=== PATIENT | male | born 1950 | race Caucasian/White ===

== ENCOUNTER 2021-11-07 14:49 | Outpatient (CLI) | payer MEDICARE, SELFPAY ==
--- NOTE | ~2021-11-07 | XR_ITS ---
XR foot RT min 3V DATE: 11/07/2021 15:21 INDICATION: Fifth digit pain and dorsal metatarsal swelling TECHNIQUE: 4 views COMPARISON: None FINDINGS: Prominent plantar and slight posterior calcaneal enthesopathy. There is mild osteoarthritis at the first metatarsophalangeal joint. No recent fracture, dislocation, periosteal reaction or bone destruction is evident. IMPRESSION: Calcaneal enthesopathy Mild osteoarthritis at first metatarsophalangeal joint Reviewed, dictated and finalized at location J. N WASHER
== END 2021-11-07 14:50 | disposition home or self-care (01) ==
PROVIDERS: PCP Emergency Medicine; Visit Provider Emergency Medicine
DX: M19.071 Primary osteoarthritis, right ankle and foot (principal); M77.31 Calcaneal spur, right foot
CPT/HCPCS: 73630

== ENCOUNTER 2021-11-11 10:45 | Emergency (ER) | payer MEDICARE, SELFPAY ==
[2021-11-11 11:47] VITALS: BP 125/75; PULSE 91; RESP 20; TEMP 36.5; O2SAT 100
[2021-11-11 12:00] VITALS: BP 125/75; PULSE 91; RESP 20; O2SAT 100
--- NOTE | 2021-11-11 12:00 | ED.LOWEXIN ---
HPI - Extremity Injury (Lower) General Chief Complaint: Extremity Injury, Lower Stated Complaint: right foot pain Time Seen by Provider: 11/11/21 11:54 Source: patient Mode of arrival: ambulatory Limitations: no limitations History of Present Illness HPI Narrative: Patient is 70 years old white male presents with right foot pain started 1 week ago. Patient denies any specific trauma. Patient reports that pain gets worse if he tries to put weight on it. Patient denies any pain anywhere else except of the foot. Patient denies any fever, chills, nausea, vomiting. Patient had x-ray of the right foot ON November 07, 2021 which showed no acute abnormalities. History of hypertension, patient does not smoke or drink or uses drugs. Related Data Home Medications Medication Instructions Recorded Confirmed atorvastatin 10 mg PO 11/11/21 cephalexin 500 mg BID 11/11/21 11/11/21 cyanocobalamin (vitamin B-12) mcg 11/11/21 ergocalciferol (vitamin D2) 11/11/21 sitagliptin [Januvia] mg 11/11/21 tizanidine mg 11/11/21 valsartan-hydrochlorothiazide tablet 11/11/21 Allergies Allergy/AdvReac Type Severity Reaction Status Date / Time No Known Allergies Allergy Verified 11/11/21 12:01 Review of Systems Review of Systems: CONSTITUTIONAL: Denies fever, chills, or sweats. EYES: Denies visual changes, redness, or discharge. ENT: Denies rhinorrhea, congestion, sore throat, or otalgia. CARDIOVASCULAR: Denies chest pain, palpitations, or edema. RESPIRATORY: Denies cough or dyspnea. GASTROINTESTINAL: Denies abdominal pain, nausea, vomiting, or diarrhea. GENITOURINARY: Denies dysuria or hematuria. SKIN: Denies rash or itching. MUSCULOSKELETAL: Denies back pain, joint pain, or myalgia. NEUROLOGIC: Denies headache, numbness, or weakness. PSYCHIATRIC: Denies anxiety or depression. Exam Narrative: General appearance: Well-developed, well-nourished Skin: Normal color Head: Normocephalic, nontraumatic Eyes: Clear conjunctiva ENT: Oropharynx normal, ears normal, nose normal Neck: Supple, nontender Chest and respiratory: Airway patent, no respiratory distress, no accessory muscle use Heart: Regular rate/rhythm Abdomen: Soft, nontender, no organomegaly, quiet bowel sounds Vascular: Normal peripheral pulses, normal capillary refill. Musculoskeletal: Right foot showed slight diffuse swelling, slight faint erythematous changes at the dorsal side with mild tenderness with deep palpation. Slightly warm to touch. No discharge or open skin. No localized joint swelling or tenderness. 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 Tenosynovitis, gouty arthritis, cellulitis my concern. Patient will be discharged on prednisone. Because his creatinine is 1.8, will trying to avoid any NSAID at this time.. Patient was advised to keep foot elevated, follow-up with Ortho if there is no improvement in 5 days. Differential Diagnosis Differential diagnosis: Likely ankle sprain and strain and other (Tenosynovitis, tendinitis, arthritis, cellulitis) Critical Care Time C
[2021-11-11 13:00] LABS: Basophils Percent Auto 0.3 % (0.2-1.2); Eosinophils Absolute Auto 0.3 K/mm3 (0-0.3); Hematocrit 35.3 % (42.0-52.0); Hemoglobin 11.6 g/dL (14.0-18.0); Immature Granulocyte Absolute 0.07 K/mm3 (0.00-0.031); Immature Granulocyte Percent A 0.5 % (0-0.5); Lymphocytes Absolute Auto 1.01 K/mm3 (0.9-3.2); Lymphocytes Percent Auto 7.8 % (18.3-44.2); Mean Corpuscular HGB Conc 32.9 g/dl (32-36); Mean Corpuscular Hemoglobin 29.6 pg (26-34); Mean Corpuscular Volume 90.1 fl (80-100); Mean Platelet Volume 10.2 fl (7.4-10.4); Monocytes Absolute Auto 1.4 K/mm3 (0.1-0.6); Monocytes Percent Auto 10.9 % (2.6-8.5); Neutrophils Absolute Auto 10.1 K/mm3 (1.3-6.7); Neutrophils Percent Auto 78.5 % (45.5-73.1); Platelet Count Result 287 k/mm3 (150-375); Red Blood Count 3.92 M/mm3 (4.6-6.20); Red Cell Distribution Width 12.3 % (11.5-14.5); White Blood Count 12.9 K/mm3 (4.5-10.0)
[2021-11-11 13:15] LABS: Alanine Aminotransferase 14 U/L (4-50); Albumin Level 4.4 g/dL (3.5-5.1); Alkaline Phosphatase 67 U/L (38-126); Anion Gap 13 mmol/L (8-16); Aspartate Amino Transferase 20 U/L (17-59); Bilirubin,Total 0.4 mg/dL (0.2-1.3); Blood Urea Nitrogen 33 mg/dL (9-20); CRP 2.4 mg/dL (<1.0); Calcium 9.8 mg/dL (8.4-10.2); Carbon Dioxide 24 mmol/L (22-30); Chloride 102 mmol/L (98-107); Estimated CRCL calculation 40 ml/min; Estimated Glomerular Filt Rate 38; Glucose 97 mg/dL (65-110); Potassium 4.3 mmol/L (3.4-5.0); Sodium 139 mmol/L (137-145)
[2021-11-11 13:34] LABS: Erythrocyte Sedimentation Rate 78 mm/hr (0-20)
== END 2021-11-11 13:46 | disposition home or self-care (01) ==
PROVIDERS: Emergency Provider Emergency Medicine
DX: M79.671 Pain in right foot (principal); E86.0 Dehydration; N19 Unspecified kidney failure
CPT/HCPCS: 36415; 80053; 85025; 85652; 86140; 99283

== ENCOUNTER 2022-02-12 10:07 | Emergency (ER) | payer OTHER, MEDICARE, SELFPAY ==
--- NOTE | ~2022-02-12 | CT_ITS ---
EXAMINATION: CT abdomen pelvis w con EXAM DATE: 02/12/2022 11:50 INDICATION: Abdominal pain. TECHNIQUE: Spiral CT of the abdomen and pelvis was performed following intravenous injection of 100 m L Omnipaque 350. Axial, coronal and sagittal images of the abdomen and pelvis were reviewed. The do se-length product (DLP) for this examination was 1341.89 mGy-cm. The exposure was tailored according to patient size (auto mA exposure control), and iterative reconstruction (ASIR) was used as addition al dose reduction technique. There is no prior study for comparison. FINDINGS: The liver, spleen, adrenal glands and pancreas are unremarkable. Gallbladder is unremarkab le. No biliary obstruction. Portal and splenic veins are patent. Kidneys enhance symmetrically. T here is no hydronephrosis. Possible small left calyceal stone versus arterial sclerosis. Largest cyst is in the right kidney measuring 4 cm. The prostate is unremarkable. The bladder is collapsed with Nava catheter balloon anchor inside. There is no retroperitoneal or pelvic lymphadenopathy. Smal l umbilical fat-containing hernia. Mildly edematous transverse colonic wall, appearance suspicious for mild colitis. No pneumatosis. The re are no findings to suggest appendicitis. The stomach and small bowel are unremarkable. There is expected amount of colonic stool. No free intraperitoneal gas. The heart is normal in size. Ther e are no pericardial or pleural effusions. The lung bases are unremarkable. There are no osteoblast ic or osteolytic lesions identified. Lumbar fusion hardware L4-5. IMPRESSION: 1. Mild transverse colonic wall edema suspicious for colitis, clinical correlation. 2. Possible left nephrolithiasis. Reviewed, dictated and finalized at location A. IMPRESSION: 1. Mild transverse colonic wall edema suspicious for colitis, clinical correla tion. 2. Possible left nephrolithiasis.
--- NOTE | ~2022-02-12 | XR_ITS ---
EXAMINATION: XR abdomen/kub 1V EXAM DATE: 02/12/2022 10:23 INDICATION: Constipation- No Bm Post Lumbar Surgery X 10 Days Ago. TECHNIQUE: Frontal projection of the upper abdomen, frontal projection lower abdomen/pelvis for inter pretation. There is no prior study for comparison. FINDINGS: L4-5 fusion hardware. Only small amount of bowel gas, no obstruction. Rather prominent tra nsverse colonic haustral fold pattern, mild edema/colitis not excludable. Calcifications in the pelvi s are believed to be phleboliths. Bases are clear. There is no organomegaly. IMPRESSION: Nonobstructive bowel gas pattern but with somewhat prominent transverse colonic haustral folds; mild colonic wall edema/colitis not excludable. Clinical correlation. Reviewed, dictated and finalized at location A. IMPRESSION: Nonobstructive bowel gas pattern but with somewhat prominent trans verse colonic haustral folds; mild colonic wall edema/colitis not excludable. C linical correlation.
[2022-02-12 10:11] VITALS: BP 126/59; PULSE 93; RESP 16; TEMP 36.8; O2SAT 98
--- NOTE | 2022-02-12 11:16 | ED.ABDPAIN ---
HPI - Abdominal Pain General Chief Complaint: Abdominal Pain Stated Complaint: constipation Time Seen by Provider: 02/12/22 10:14 Source: patient Mode of arrival: ambulatory Limitations: no limitations History of Present Illness HPI narrative: 71-year-old male presents today with complaints of no bowel movement for 8 days. Patient recently had back surgery 11 days ago and has been in touch with his surgeon. Surgeon told him to come today to make sure he did not have a bowel obstruction. Patient denies any vomiting but does endorse nausea. Patient has tried Colace, mag citrate, and an enema at home without relief. Patient also states he has not urinated well since surgery either. Patient denies fever, urinary incontinence, fecal incontinence, or new weakness/numbness to bilateral lower extremities. Related Data Home Medications Medication Instructions Recorded Confirmed atorvastatin 10 mg PO 11/11/21 cephalexin 500 mg BID 11/11/21 11/11/21 cyanocobalamin (vitamin B-12) mcg 11/11/21 ergocalciferol (vitamin D2) 11/11/21 sitagliptin [Januvia] mg 11/11/21 tizanidine mg 11/11/21 valsartan-hydrochlorothiazide tablet 11/11/21 Allergies Allergy/AdvReac Type Severity Reaction Status Date / Time No Known Allergies Allergy Verified 11/11/21 12:01 Review of Systems Review of Systems: CONSTITUTIONAL: Denies fever, chills, or sweats. EYES: Denies visual changes, redness, or discharge. ENT: Denies rhinorrhea, congestion, sore throat, or otalgia. CARDIOVASCULAR: Denies chest pain, palpitations, or edema. RESPIRATORY: Denies cough or dyspnea. GASTROINTESTINAL: Generalized abdominal pain with nausea. Denies vomiting or diarrhea. Last bowel movement 8 days ago. GENITOURINARY: Denies dysuria or hematuria. Decreased volume of urination since surgery. SKIN: Denies rash or itching. MUSCULOSKELETAL: Denies back pain, joint pain, or myalgia. NEUROLOGIC: Denies headache, numbness, dizziness, or weakness. PSYCHIATRIC: Denies anxiety or depression. Exam Narrative: GENERAL: Well-appearing, well-nourished, and in no acute distress. HEAD: Normocephalic, atraumatic. EYES: PERRLA and EOMI. ENT: Nares clear, no rhinorrhea or epistaxis. Mucous membranes moist. Oropharynx without tonsillar hypertrophy exudate or other lesions. Bilateral TMs pearly landis nonbulging NECK: Supple. No adenopathy or masses. No carotid bruits or JVD CHEST: Clear to auscultation. No respiratory distress. No wheezes rales or rhonchi HEART: Regular rate and rhythm. No murmur heard. Normal peripheral pulses. ABDOMEN: Soft, nontender, nondistended, normal active bowel sounds. Rectal exam done with RN in room. No stool in the rectal vault. EXTREMITIES: Normal range of motion. No edema. SKIN: Warm, dry, no rash. Surgical wound noted to the thoracic region. Healing well. No drainage noted. NEURO: No focal deficits. Alert and oriented x3. Normal rectal tone. PSYCH: Normal mood and affect. Course Course Emergency Course: Labs and CAT scan reviewed with patient. Patient CT shows colitis. Patient given Flagyl and Cipro in ER and will be discharged home with prescriptions. Reevaluation(s) Reevaluation #1: Patient denies improvement in pain after catheraterization. Labs and Ct ordered. Date: 02/12/22 Time: 11:17 Vital Signs Vital signs: Vital Signs Temperature 36.8 C 02/12/22 10:11 Pulse Rate 93 02/12/22 10:11 Respiratory Rate 16 02/12/22 10:11 Blood Pressure 126/59 L 02/12/22 10:11 Pulse Oximetry 98 02/12/22 10:11 Temperature 36.8 C 02/12/22 10:11 Pulse Rate 89 02/12/22 13:17 Respiratory Rate 16 02/12/22 13:17 Blood Pressure 126/88 02/12/22 13:17 Pulse Oximetry 99 02/12/22 13:17 MDM - Abdominal Pain MDM Narrative Medical decision making narrative: HPI as noted. Patient with recent back surgery. Patient denies urinary incontinence, stool incontinence, saddle paresthesia, or new weakness to the legs. Patient with good
[2022-02-12 11:42] LABS: Basophils Percent Auto 0.2 % (0.2-1.2); Eosinophils Absolute Auto 0.2 K/mm3 (0-0.3); Eosinophils Percent Auto 0.9 % (0-4.4); Hematocrit 35.8 % (42.0-52.0); Hemoglobin 11.5 g/dL (14.0-18.0); Immature Granulocyte Absolute 0.48 K/mm3 (0.00-0.031); Immature Granulocyte Percent A 2.7 % (0-0.5); Lymphocytes Absolute Auto 2.41 K/mm3 (0.9-3.2); Lymphocytes Percent Auto 13.7 % (18.3-44.2); Mean Corpuscular HGB Conc 32.1 g/dl (32-36); Mean Corpuscular Hemoglobin 28.7 pg (26-34); Mean Corpuscular Volume 89.3 fl (80-100); Mean Platelet Volume 10.2 fl (7.4-10.4); Monocytes Absolute Auto 1.8 K/mm3 (0.1-0.6); Monocytes Percent Auto 10.4 % (2.6-8.5); Neutrophils Absolute Auto 12.7 K/mm3 (1.3-6.7); Neutrophils Percent Auto 72.1 % (45.5-73.1); Platelet Count Result 346 k/mm3 (150-375); Red Blood Count 4.01 M/mm3 (4.6-6.20); Red Cell Distribution Width 14.5 % (11.5-14.5); White Blood Count 17.6 K/mm3 (4.5-10.0)
[2022-02-12 11:43] LABS: Appearance Urine Clear (Clear); Bilirubin Urine 1+ (Negative); Blood Urine Negative (Negative); Color Urine Amber (Yellow); Glucose Urine UA 2+ mg/dL (Negative); Ketones Urine Negative (Negative); Leukocyte Esterase Ur Negative LEU/UL (Negative); Nitrate Urine Negative (Negative); Protein Urine Negative (Negative); Urobilinogen Urine 0.2 mg/dL (<2.0); pH Urine 5.5 (5.0-9.0)
[2022-02-12 11:44] LABS: Estimated CRCL calculation 45 ml/min; Estimated Glomerular Filt Rate 46
[2022-02-12 11:49] LABS: Bacteria Urine Trace /hpf; Mucus Urine Rare /lpf; RBC Urine 0-2 /hpf (0-2)
[2022-02-12 11:51] LABS: Add Urine Microscopic? YES
[2022-02-12 11:55] LABS: Alanine Aminotransferase 13 U/L (4-50); Albumin Level 3.7 g/dL (3.5-5.1); Alkaline Phosphatase 66 U/L (38-126); Anion Gap 7 mmol/L (8-16); Aspartate Amino Transferase 20 U/L (17-59); Bilirubin,Total 0.5 mg/dL (0.2-1.3); Blood Urea Nitrogen 39 mg/dL (9-20); Calcium 8.9 mg/dL (8.4-10.2); Carbon Dioxide 25 mmol/L (22-30); Chloride 98 mmol/L (98-107); Estimated CRCL calculation 49 ml/min; Estimated Glomerular Filt Rate 50; Glucose 122 mg/dL (65-110); Potassium 3.7 mmol/L (3.4-5.0); Sodium 130 mmol/L (137-145)
[2022-02-12] MEDS: SODIUM CHLORIDE 0.9% IV 1,000 ML 999 ML IV CONT (12:09)
[2022-02-12] MEDS: CIPROFLOXACIN 500 MG TAB PO (12:31)
[2022-02-12] MEDS: metroNIDAZOLE 250 MG TABLET 500 MG PO (12:31)
[2022-02-12] MEDS: METOCLOPRAMIDE HCL INJ 10 MG/2 ML VIAL IV PUSH (12:31)
[2022-02-12 13:17] VITALS: BP 126/88; PULSE 89; RESP 16; O2SAT 99
== END 2022-02-12 13:43 | disposition home or self-care (01) ==
PROVIDERS: Emergency Provider Nurse Practitioner Family
DX: K52.9 Noninfective gastroenteritis and colitis, unspecified (principal)
CPT/HCPCS: 36415; 51701; 74018; 74177; 80053; 81001; 85025; 96374; 99284; A9270; J2765; J7030; Q9967

== ENCOUNTER 2022-06-11 16:11 | Outpatient (CLI) | payer MEDICARE, SELFPAY ==
--- NOTE | ~2022-06-11 | XR_ITS ---
EXAMINATION: XR wrist LT min 3V DATE: 06/11/2022 16:36 INDICATION: Left wrist arthritis and pain. TECHNIQUE: 4 views of left wrist were obtained. COMPARISON: None. FINDINGS: There is scapholunate dissociation with rotatory subluxation of the scaphoid. There is no a cute fracture. There is severe osteoarthritis of distal radioulnar joint and radiolunate joint and mi ld osteoarthritis of radioscaphoid joint, triscaphe joint, and first carpometacarpal joint. There is a 9 mm loose body palmar to the head of the ulna. IMPRESSION: 1. Polyarticular osteoarthritis. 2. Scapholunate dissociation. Reviewed, dictated and finalized at location A.
--- NOTE | ~2022-06-11 | XR_ITS ---
EXAMINATION: XR wrist RT min 3V DATE: 06/11/2022 16:36 INDICATION: Right wrist arthritis and pain. TECHNIQUE: 4 views of right wrist were obtained. COMPARISON: None. FINDINGS: Scapholunate dissociation is noted. No fracture. There is severe osteoarthritis of radiolun ate joint and mild osteoarthritis of distal radioulnar joint and triscaphe joint and moderate osteoar thritis of first carpometacarpal joint. IMPRESSION: 1. Polyarticular osteoarthritis. 2. Scapholunate dissociation. Reviewed, dictated and finalized at location A.
== END 2022-06-11 16:12 | disposition home or self-care (01) ==
LOC: ANHIMG 16:17
PROVIDERS: PCP Plastic Surgery; Visit Provider Plastic Surgery
DX: M19.031 Primary osteoarthritis, right wrist (principal); M19.032 Primary osteoarthritis, left wrist
CPT/HCPCS: 73110

== ENCOUNTER 2022-07-11 11:45 | Outpatient (CLI) | payer MEDICARE, SELFPAY ==
--- NOTE | ~2022-07-11 | XR_ITS ---
EXAMINATION: XR knee RT 3V DATE: 07/11/2022 12:11 INDICATION: Right knee pain TECHNIQUE: Three views of the right knee were obtained. COMPARISON: None. FINDINGS: Alignment is normal. No fracture or osteochondral lesion. There is tricompartmental osteoar thritis, advanced in the medial compartment and mild in the lateral and patellofemoral compartments N o joint effusion/synovitis. Soft tissues are unremarkable. IMPRESSION: 1. 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
== END 2022-07-11 11:46 | disposition home or self-care (01) ==
PROVIDERS: PCP Plastic Surgery; Visit Provider Internal Medicine
DX: M17.11 Unilateral primary osteoarthritis, right knee (principal)
CPT/HCPCS: 73562

== ENCOUNTER 2022-07-30 10:07 | Outpatient (CLI) | payer MEDICARE, SELFPAY ==
--- NOTE | 2022-07-30 11:00 | NEURO_ITS ---
IMPRESSION: # known diabetic. # Complains of numbness and weakness. 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 # Super imposed bilateral Carpal Tunnel Syndrome. MTDD
== END 2022-07-30 10:08 | disposition home or self-care (01) ==
PROVIDERS: PCP Plastic Surgery; Visit Provider Plastic Surgery
DX: R20.2 Paresthesia of skin (principal)
CPT/HCPCS: 95886; 95911

== ENCOUNTER 2022-12-19 11:23 | Outpatient (CLI) | payer MEDICARE, SELFPAY ==
[2022-12-19 18:53] LABS: Anion Gap 9 mmol/L (8-16); Blood Urea Nitrogen 19 mg/dL (9-20); Calcium 8.9 mg/dL (8.4-10.2); Carbon Dioxide 20 mmol/L (22-30); Chloride 105 mmol/L (98-107); Estimated Glomerular Filt Rate > 60; Glucose 184 mg/dL (65-110); Potassium 3.9 mmol/L (3.4-5.0); Sodium 134 mmol/L (137-145)
== END 2022-12-19 11:24 | disposition home or self-care (01) ==
LOC: ANHSURGERY 11:28
PROVIDERS: Anesthesiology; PCP Internal Medicine; Visit Provider Plastic Surgery
DX: Z51.81 Encounter for therapeutic drug level monitoring (principal); Z01.818 Encounter for other preprocedural examination
CPT/HCPCS: 36415; 80048

== ENCOUNTER 2022-12-24 00:41 | Day surgery (SDC) | payer MEDICARE, SELFPAY ==
[2022-12-15 15:53] VITALS: BMI 35.0
--- NOTE | 2022-12-15 16:10 | PC.NURSE ---
Report to the Outpatient Waiting Room, entrance under the green pavilion located off [facility], at time __6:00AM on date __12/24/22 . Planned Procedure Time: __7:30AM . Time changes happen often and if your time is changed the preop area will call you the afternoon before. - You and your visitor will be asked to self-screen and do not enter if you have any COVID symptoms. - Only one visitor is requested with a max of two and NO children visitors are allowed at this time. - The patient visitor may be requested to leave or wait in car when not with patient due to distancing restrictions. - A mask is optional within the hospital at this time. Patients may have clear liquids (water, carbonated beverages, clear teas, apple juice) until 3 hours prior to surgery with a maximum of 20 ounces. - No food from midnight until time of surgery Take the following medications with a SIP of water the morning of surgery: __NONE DO NOT STOP ANY OF YOUR OTHER PRESCRIPTION MEDICATIONS PRIOR TO SURGERY ?EXCEPT THE FOLLOWING Medications to discontinue per physician ___HOLD ALL VITAMINS/SUPPLEMENTS 3 DAYS PRE-OP Date to take last dose___12/20/22 Please no make-up, nail lao, hairspray, perfume, deodorant, or body powder the day of surgery. No jewelry (including any body piercings) or valuables the day of surgery, leave them at home. Please take a shower or bath the night before, or the morning of, surgery with an antibacterial soap. Wear comfortable, loose fitting clothing. Children are encouraged to wear pajamas. - Jewelry must be removed prior to entering the operating room. Rings and piercings that are not removed may be cut off. - The hospital will not accept responsibility for valuables. - Please leave all valuables, including medications, at home the day of surgery. If you are going home after surgery, a licensed wedding transportation driver must drive you home. - NO public transportation without another adult if you receive anesthesia. - We recommend that an adult stay with you for 24 hours following discharge. - We also recommend that you do not drive, make important decision, drink alcoholic beverages, or take any drugs that were not prescribed by your health care provider for at least 24 hours after your discharge time. Follow any additional instructions given to you from your surgeon. If you or anyone in your household have experienced Covid symptoms in the past week, please notify your surgeon or the nurse liaison at the phone number below for possible testing. Telephone instructions given to _PATIENT'S SISTER-AIDEN__and asked if any additional questions and then verbalized understanding. Patient advised to call surgeon office or pre surgery nurse liaison [phone] if any additional questions.
[2022-12-24 07:23] VITALS: BP 156/103; PULSE 94; RESP 20; TEMP 36.8; O2SAT 98
--- NOTE | 2022-12-24 07:44 | WPDHPUPDATE1 ---
History and Physical Update Update Date/Time: 12/24/22 07:44 History and Physical has been reviewed, including an updated exam of the patient. There are NO changes in the patient's condition. Risks, benefits, and alternatives have been discussed and questions answered. Patient agrees to proceed with procedure.
[2022-12-24] MEDS: LACTATED RINGERS 1,000 ML 30 ML IV CONT (07:45)
--- NOTE | 2022-12-24 08:28 | WPDANESEPPF ---
Anes - Initial Pre Proc Eval Procedure: Operation Date: 12/24/22 09:30 Proposed Procedures p Left Open Carpal Tunnel Release - Christiano Quan MD Date/Time: 12/24/22 08:28 Surgeon: Christiano Quan MD Pre Op Diagnosis: Lt Carpal Tunnel Syndrome Patient Data Age: 72 Gender: M Height: 1.69 m Weight: 103.8 kg Last Vital Signs Temp 36.8 C 12/24/22 07:23 Pulse 94 12/24/22 07:23 Resp 20 12/24/22 07:23 BP 156/103 H 12/24/22 07:23 Pulse Ox 98 12/24/22 07:23 O2 Del Method Room Air 12/24/22 07:23 Allergies Allergy/AdvReac Type Severity Reaction Status Date / Time No Known Allergies Allergy Verified 12/24/22 07:36 Home Medications Medication Instructions Recorded Confirmed Type valsartan 160 1 tablet PO QAM 11/11/21 12/24/22 History mg-hydrochlorothiazide 25 mg tablet allopurinol 100 mg tablet 100 mg PO BID 12/15/22 12/24/22 History cholecalciferol (vitamin D3) 50 50 mcg PO DAILY 12/15/22 12/24/22 History mcg (2,000 unit) tablet Patient hx anesthesia problems: none Family hx anesthesia problems: none Results Review: All pre-operative results and documents have been reviewed as part of the pre-operative evaluation. [facility] Social History Social History Smoking status: Never smoker Substance use: never Living arrangements: with family Additional living arrangements comments: DAUGHTER & PHIL Spiritual care concerns: No Anes - Eval Final PreProcedure Day of Procedure 12/24/22 08:28 Patient weight: obese Heart: regular rate and rhythm Lungs: clear to auscultation Airway: Mallampati scale class II Neurological: alert and oriented Last oral intake: >/= 8 hours ASA classification: III Emergent: no Anesthetic plan: proceed Anesthesia type and monitoring: general GIVS and standard monitoring Results Review: All pre-operative results and documents have been reviewed as part of the pre-operative evaluation. Informed Consent: The patient's anesthetic plan and its attendant risks and benefits were discussed with the patient/family/POA. Questions were solicited and answers provided to the satisfaction of the patient/family/POA.
[2022-12-24] MEDS: LIDO 1%/EPINEPHRINE 1:100,000 20 ML VIAL INFILTRATE (09:10)
[2022-12-24] MEDS: BACITRACIN OINTMENT 15 GM TUBE 1 APPLIC TOPICAL (09:10)
[2022-12-24 09:52] VITALS: BP 122/72; PULSE 86; RESP 14; O2SAT 95
--- NOTE | 2022-12-24 09:57 | W.PM.PROC2 ---
Procedure Note - Detailed Date of Procedure 12/24/22 Pre-op Diagnosis Lt Carpal Tunnel Syndrome Post-op Diagnosis Same Procedure Performed left open carpal tunnel release Surgeon Christiano Quan MD Anesthesia MAC Description of Procedure the patient's right volar wrist was marked in the holding. He was taken to the operating room was placed supine on the operating table. He was given IV sedation in the left upper extremity was prepped and draped in the. The site remarked for any incision and locally infiltrated with 1% lidocaine with. The tourniquet was inflated to 250 mmHg. The incision was made as marked and dissection carried through the subcutaneous tissue to the palmar fascia. This and the transverse retinaculum were identified. Both of these were incised with scissors and knife and under 3 point retraction the retinaculum was divided distally and proximally to completely release it.. There is no unusual anatomy noted. The skin wound was closed with interrupted 4-0 nylon suture. The tourniquet was released. The usual bandage was applied. The patient discharged without prescription he has oxycodone at home. Estimated Blood Loss 0 Drains No Packing No Pathology None sent Complications No immediate complications Condition Stable Disposition Same day
[2022-12-24 10:22] VITALS: BP 143/77; PULSE 75; RESP 16
[2022-12-24 10:52] VITALS: BP 152/77; PULSE 80; RESP 16
[2022-12-24 11:04] VITALS: BP 145/79; PULSE 79; RESP 17
== END 2022-12-24 11:15 | disposition home or self-care (01) ==
PROVIDERS: PCP Internal Medicine; Visit Provider Plastic Surgery
PROC: (CPT 64721; principal; 2022-12-24 09:30)
DX: G56.02 Carpal tunnel syndrome, left upper limb (principal); E66.9 Obesity, unspecified; Z68.36 Body mass index [BMI] 36.0-36.9, adult
CPT/HCPCS: 64721; A9270; J2250; J2704; J3010; J7120

== ENCOUNTER 2023-03-10 08:49 | Outpatient (CLI) | payer MEDICARE, SELFPAY ==
--- NOTE | ~2023-03-10 | XR_ITS ---
Right Hand Technique: PA, oblique, and lateral views were obtained. Clinical History: Osteoarthritis Findings: No acute fracture or dislocation is seen. There are mild to moderate degenerative changes t hroughout the proximal and distal interphalangeal joints of the hand. There is mild degenerative segovia ge at the radiolunate articulation and first CMC joint. Soft tissues are unremarkable. Impression: Extensive scattered mild to moderate osteoarthritic changes, as detailed above, predominantly involvi ng the interphalangeal joints and wrist. Reviewed, dictated and finalized at location M. Impression: Extensive scattered mild to moderate osteoarthritic changes, as detailed above, predominantly involving the interphalangeal joints and wrist.
--- NOTE | ~2023-03-10 | XR_ITS ---
Left Hand Technique: PA, oblique, and lateral views were obtained. Clinical History: Osteoarthritis Findings: No acute fracture or dislocation is seen. There are mild to moderate degenerative changes t hroughout the proximal and distal interphalangeal joints in the hand. There is mild degenerative segovia ge of the radiocarpal articulation and first CMC joint. Soft tissues are unremarkable. Impression: Extensive scattered mild to moderate osteoarthritic changes, predominantly involving the interphalang eal joints and wrist, as detailed above. Reviewed, dictated and finalized at location M. Impression: Extensive scattered mild to moderate osteoarthritic changes, predominantly invo lving the interphalangeal joints and wrist, as detailed above.
== END 2023-03-10 08:50 | disposition home or self-care (01) ==
PROVIDERS: PCP Internal Medicine; Visit Provider Plastic Surgery
DX: M19.041 Primary osteoarthritis, right hand (principal); M19.042 Primary osteoarthritis, left hand
CPT/HCPCS: 73130

== ENCOUNTER 2023-03-25 09:44 | Outpatient (CLI) | payer MEDICARE, SELFPAY ==
[2023-03-25 10:33] LABS: Anion Gap 8 mmol/L (8-16); Blood Urea Nitrogen 25 mg/dL (9-20); Calcium 9.2 mg/dL (8.4-10.2); Carbon Dioxide 24 mmol/L (22-30); Chloride 106 mmol/L (98-107); Estimated Glomerular Filt Rate > 60; Glucose 129 mg/dL (65-110); Potassium 4.5 mmol/L (3.4-5.0); Sodium 138 mmol/L (137-145)
== END 2023-03-25 09:45 | disposition home or self-care (01) ==
LOC: ANHSURGERY 09:48
PROVIDERS: Anesthesiology; PCP Internal Medicine; Visit Provider Plastic Surgery
DX: Z51.81 Encounter for therapeutic drug level monitoring (principal); Z01.818 Encounter for other preprocedural examination
CPT/HCPCS: 36415; 80048

== ENCOUNTER 2023-04-01 00:54 | Day surgery (SDC) | payer MEDICARE, SELFPAY ==
[2023-03-18 14:59] VITALS: BMI 32.2
--- NOTE | 2023-03-18 15:16 | PC.NURSE ---
Report to the Outpatient Waiting Room, entrance under the green pavilion located off [facility], at time __8:00AM on date __04/01/23 . Planned Procedure Time: __10:00AM . Time changes happen often and if your time is changed the preop area will call you the afternoon before. - You and your visitor will be asked to self-screen and do not enter if you have any COVID symptoms. - A mask is optional within the hospital at this time. Patients may have clear liquids (water, carbonated beverages, clear teas, apple juice) until 3 hours prior to surgery with a maximum of 20 ounces. - No food from midnight until time of surgery Take the following medications with a SIP of water the morning of surgery: __NONE DO NOT STOP ANY OF YOUR OTHER PRESCRIPTION MEDICATIONS PRIOR TO SURGERY ?EXCEPT THE FOLLOWING Medications to discontinue per physician ___HOLD ALL VITAMINS/SUPPLEMENTS 3 DAYS PRE-OP Date to take last dose___03/28/23 Please no make-up, nail french, hairspray, perfume, deodorant, or body powder the day of surgery. No jewelry (including any body piercings) or valuables the day of surgery, leave them at home. Please take a shower or bath the night before, or the morning of, surgery with an antibacterial soap. Wear comfortable, loose fitting clothing. Children are encouraged to wear pajamas. - Jewelry must be removed prior to entering the operating room. Rings and piercings that are not removed may be cut off. - The hospital will not accept responsibility for valuables. - Please leave all valuables, including medications, at home the day of surgery. If you are going home after surgery, a licensed hazardous materials driver must drive you home. - NO public transportation without another adult if you receive anesthesia. - We recommend that an adult stay with you for 24 hours following discharge. - We also recommend that you do not drive, make important decision, drink alcoholic beverages, or take any drugs that were not prescribed by your health care provider for at least 24 hours after your discharge time. Follow any additional instructions given to you from your surgeon. If you or anyone in your household have experienced Covid symptoms in the past week, please notify your surgeon or the nurse liaison at the phone number below for possible testing. Telephone instructions given to _PATIENT'S SISTER- AIDEN and asked if any additional questions and then verbalized understanding. Patient advised to call surgeon office or pre surgery nurse liaison [phone] if any additional questions.
--- NOTE | 2023-04-01 07:10 | WPDHPUPDATE1 ---
History and Physical Update Update Date/Time: 04/01/23 07:10 History and Physical has been reviewed, including an updated exam of the patient. There are NO changes in the patient's condition. Risks, benefits, and alternatives have been discussed and questions answered. Patient agrees to proceed with procedure.
[2023-04-01 07:29] VITALS: BP 143/79; PULSE 92; RESP 16; TEMP 37.1; O2SAT 98; BMI 35.9
--- NOTE | 2023-04-01 09:01 | P.PNAN_ITS ---
Anes - Initial Pre Proc Eval Procedure: Operation Date: 04/01/23 10:00 Proposed Procedures p Right Open Carpal Tunnel Release - Christiano Quan MD Date/Time: 04/01/23 09:01 Surgeon: Christiano Quan MD Pre Op Diagnosis: right carpal tunnel syndrome Patient Data Age: 72 Gender: M Height: 1.69 m Weight: 102.5 kg Last Vital Signs Temp 37.1 C 04/01/23 07:29 Pulse 92 04/01/23 07:29 Resp 16 04/01/23 07:29 BP 143/79 H 04/01/23 07:29 Pulse Ox 98 04/01/23 07:29 O2 Del Method Room Air 04/01/23 07:29 Allergies Allergy/AdvReac Type Severity Reaction Status Date / Time No Known Allergies Allergy Verified 04/01/23 08:11 Home Medications Medication Instructions Recorded Confirmed Type valsartan 160 1 tablet PO QAM 11/11/21 04/01/23 History mg-hydrochlorothiazide 25 mg tablet allopurinol 100 mg tablet 100 mg PO BID 12/15/22 04/01/23 History cholecalciferol (vitamin D3) 50 50 mcg PO DAILY 12/15/22 04/01/23 History mcg (2,000 unit) tablet cyanocobalamin (vitamin B-12) 1,000 mcg PO DAILY 03/18/23 04/01/23 History 1,000 mcg tablet meloxicam 7.5 mg tablet 7.5 mg PO DAILY 03/18/23 04/01/23 History Patient hx anesthesia problems: none Family hx anesthesia problems: none Results Review: All pre-operative results and documents have been reviewed as part of the pre- operative evaluation. [facility] Past Medical History Medical History (Updated 04/01/23 @ 09:02 by Jamie Muñoz MD) Chronic back pain HTN (hypertension) Obesity Surgical History Surgical History (Updated 04/01/23 @ 09:02 by Jamie Muñoz MD) History of carpal tunnel surgery Social History Social History Smoking status: Never smoker Substance use: never Living arrangements: with family Additional living arrangements comments: DAUGHTER & PHIL Spiritual care concerns: No Anes - Eval Final PreProcedure Day of Procedure 04/01/23 09:01 Patient weight: obese Heart: regular rate and rhythm Lungs: clear to auscultation Airway: Mallampati scale class II Neurological: alert and oriented Last oral intake: >/= 8 hours ASA classification: III Emergent: no Anesthetic plan: proceed Anesthesia type and monitoring: general GIVS and standard monitoring Results Review: All pre-operative results and documents have been reviewed as part of the pre- operative evaluation. Informed Consent: The patient's anesthetic plan and its attendant risks and benefits were discussed with the patient/family/POA. Questions were solicited and answers provided to the satisfaction of the patient/family/POA.
[2023-04-01] MEDS: LIDO 1%/EPINEPHRINE 1:100,000 50 ML VIAL INFILTRATE (10:00)
[2023-04-01 10:09] VITALS: BP 117/89; PULSE 88; RESP 14; O2SAT 95
[2023-04-01] MEDS: LACTATED RINGERS 1,000 ML 30 ML IV CONT (10:09)
--- NOTE | 2023-04-01 10:26 | W.PM.PROC2 ---
Procedure Note - Detailed Date of Procedure 04/01/23 Pre-op Diagnosis right carpal tunnel syndrome Post-op Diagnosis Same Procedure Performed Right open carpal tunnel release Surgeon Christiano Quan MD Anesthesia MAC Description of Procedure The operative site was marked on the patient's right wrist in the holding area. He was then taken to the operating room where he was placed supine on the operating table he was given some IV sedation and the right upper extremity was prepped and draped in usual fashion. A time-out was held and confirmed. The surgical site was remarked and locally infiltrated with 1% lidocaine with epinephrine. The extremity was exsanguinated and the tourniquet inflated to 250 mmHg. The incision was made as marked and dissection was carried bluntly through the subcutaneous tissue to the palmar fascia. This and transverse retinaculum were incised with a 15. Blade. Under 3 point retraction the ligament was divided distally and proximally to completely release it. There was no unusual anatomy noted. The skin was closed with interrupted 4 0 nylon. The patient is discharged in stable condition to be discharged with a prescription for hydrocodone 5/325 6. Estimated Blood Loss 0 Tourniquet Time 3 Drains No Packing No Pathology None sent Complications No immediate complications Condition Stable Disposition Same day
[2023-04-01 10:30] VITALS: BP 120/74; PULSE 75; RESP 14; O2SAT 95
[2023-04-01 11:00] VITALS: BP 132/70; PULSE 75; RESP 14
== END 2023-04-01 11:12 | disposition home or self-care (01) ==
PROVIDERS: PCP Internal Medicine; Visit Provider Plastic Surgery
PROC: (CPT 64721; principal; 2023-04-01 10:00)
DX: G56.01 Carpal tunnel syndrome, right upper limb (principal); I10 Essential (primary) hypertension; E66.9 Obesity, unspecified; Z68.35 Body mass index [BMI] 35.0-35.9, adult
CPT/HCPCS: 64721; A9270; J2704; J3010; J7120